=== PATIENT | female | born 1990 | race Caucasian/White ===

== ENCOUNTER 2022-12-10 10:14 | Outpatient (CLI) | payer OTHER, SELFPAY ==
[2022-12-10 11:51] LABS: Albumin* 4.4 g/dL (3.3-5.0); Chloride* 105 mmol/L (96-114); HCG Qualitative Serum* Negative (Negative)
[2022-12-10 11:52] LABS: Potassium* 4.4 mmol/L (3.6-5.1); Sodium* 140 mmol/L (135-149)
[2022-12-10 11:54] LABS: Alkaline Phosphatase* 56 U/L (40-150); Aspartate Amino Transferase* 24 U/L (12-35); Bilirubin Total* 0.7 mg/dL (0.1-1.5); Blood Urea Nitrogen* 17 mg/dL (5-24); Carbon Dioxide* 27 mmol/L (20-32); Cholesterol* 151 mg/dL (90-199); Creatinine* 0.6 mg/dL (0.5-1.5); Estimated Glomerular Filt Rate 121 ml/min; Glucose* 96 mg/dL (60-115); Total Protein* 7.3 g/dL (6.0-8.3)
[2022-12-10 11:55] LABS: Alanine Aminotransferase* 19 U/L (4-35); Calcium* 8.8 mg/dL (8.4-10.6); HDL Cholesterol* 50 mg/dL (>=50); LDL Cholesterol Calculated 87 mg/dL (<100); Triglycerides* 70 mg/dL (40-149)
[2022-12-10 12:09] LABS: Vitamin D 25 Hydroxy* 34 ng/mL (30-80)
[2022-12-10 12:23] LABS: TSH With Reflex to FT4* 0.713 uIU/mL (0.270-4.200)
== END 2022-12-10 10:15 | disposition home or self-care (01) ==
PROVIDERS: PCP Family Medicine; Visit Provider Family Medicine
DX: Z01.419 Encounter for gynecological examination (general) (routine) without abnormal findings (principal); E55.9 Vitamin D deficiency, unspecified; F32.A Depression, unspecified; N91.2 Amenorrhea, unspecified; N92.6 Irregular menstruation, unspecified; Z13.6 Encounter for screening for cardiovascular disorders
CPT/HCPCS: 80053; 80061; 82306; 84443; 84703

== ENCOUNTER 2022-12-12 15:01 | Outpatient (CLI) | payer OTHER, SELFPAY | END 2022-12-12 15:02 | disposition home or self-care (01) | PROVIDERS: PCP Family Medicine; Visit Provider Physician Assistant | DX: Z12.4 Encounter for screening for malignant neoplasm of cervix (principal); N92.6 Irregular menstruation, unspecified | CPT/HCPCS: 83001; 84146 ==

== ENCOUNTER 2024-03-04 09:23 | Outpatient (CLI) | payer OTHER, SELFPAY ==
--- OUTSIDE RECORDS SUMMARY | 2024-03-04 09:25 | XMS_ITS | Clinical Summary ---
Author Organization [facility] Address [place], [place] [address] Care Team Providers Care Pet Care Associate Name Role Phone Glendy Helm MD Primary Care Provider + Allergies No known active allergies Medications Medication Sig Dispensed Refills Start Date End Date Status medication order composer Herbal Supplement; Cats Claw; 15 gtt T.I.D Active azithromycin (ZITHROMAX) 250 mg tabletIndications:Isrrael allen Take 500 mg (2 tabs) by mouth on day 1, then 250 mg (1 tab) daily for days 2-5. 6 tablet 08/18/2019 Active Active Problems Problem Noted Date Diagnosed Date Previous delivery affecting , antepartum 09/18/2018 Premature cervical dilation in third trimester 1 11/19/2017 Cervical high risk HPV (human papillomavirus) te st positive 12/11/2016 Overview: 12/2016- NIL pap, HPV +. PLAN: repeat Pap in 1 year (due 12/2017). Immunizations Name Administration Dates Next Due AMB Influenza, IIV4 PF (=>6 mos Flulaval,Fluzone Fluarix)(Flu Clinic Only) 08/12/2016 Human Papilloma Virus Vaccine 08/20/2010, 010 Influenza Virus, Unspecified 08/05/2013,08/17/20 09 Influenza, IIV4 08/07/2020, 9,07/07/2018,2016 Tdap 07/23/2013,06/14/2010 Tuberculin (PPD) 07/06/2012 Family History Medical History Relation Name Comments Dementia Maternal Grandfather Cancer Maternal Grandmother leukemi a Relation Name Status Comments Maternal Grandfather Maternal Grandmother Social History Tobacco Use Types Packs/Day Years Used Date Smoking Tobacco: Former Cigarettes 0.5 5 Smokeless Tobacco: Never Tobacco Cessation:Counseling Given: Yes Alcohol Use Standard Drinks/Week Comments Yes 0 (1 standard drink = 0.6 oz pur e alcohol) occasional PHQ-2 Answer Date Recorded PHQ-2 Score 0 08/18/2019 Sex and Gender Information Value Date Recorded Sex Assigned at Not on file Gender Identity Not on file Sexual Orientation Not on file Obstetrics History Para Term AB IAB SAB Ectopic Multiple Livin g Live Births 4 3 3 3 3 Date Outcome GA Total Labor Labor/2nd/3rd Weight Sex Delivery Anes PTL Tri A1 A5 Name Cl in 03/06 Term M Nidia ng 05/28 Term M Nidia ng 08/03 Term M Nidia ng Last Filed Vital Signs Vital Sign Reading Time Taken Comments Blood Pressure 117/78 08/18/2019 9:20 AM BOTTOM HOOP DRIVER Pulse 90 08/18/2019 9:20 AM BOTTOM HOOP DRIVER Temperature 37.6 ??C (99.6 ??F) 08/18/2019 9:20 AM CS T Respiratory Rate 16 09/19/2018 9:10 AM BOTTOM HOOP DRIVER Oxygen Saturation 97% 08/18/2019 9:20 AM BOTTOM HOOP DRIVER Inhaled Oxygen Concentration - - Weight 105.5 kg (232 lb 8 oz) 08/18/2019 9:20 AM BOTTOM HOOP DRIVER Height 174.5 cm (5' 8.7) 08/18/2019 9:20 AM BOTTOM HOOP DRIVER Body Mass Index 34.63 08/18/2019 9:20 AM BOTTOM HOOP DRIVER Plan of Treatment Health Maintenance Due Date Last Done Comments HIV for age 15-65 2003 Hepatitis C screening for age 18-79 2006 BMI (ht and wt on same day) for age 18+ 08/18/2020 08/18/2019, 12/18/2016, 11/30/2016 Depression screening for age 12+ 08/18/2020 08/18/2019, 12/18/2016 COVID-19 vaccine series ( season) 2023 Tetanus booster 07/23/2023 07/23/2013, 06/14/2010 Pap test for age 21-65 12/13/2023 3, 12/12/2022, 10/25/2020, Additional history exists Influenza for age 9-49 06/13/2024 0, 08/06/2019, 07/07/2018, Additional history exists Tdap Completed 07/23/2013, 06/14/2010 Pneumococcal series for age 6-64 Aged Out No longer eligible based on patient's age to complete this topic Procedures Procedure Name Priority Date/Time Associated Diagnosis Comments HPV THIN PREP Routine 12/12/2022 12:00 PM BOTTOM HOOP DRIVER from Last 3 Months or Most Recently Relevant to Health Maintenance Results * HPV HIGH RISK (12/12/2022 12:00 PM BOTTOM HOOP DRIVER) TYPE 16 Negative Negative 12/17/2022 5:40 PM BOTTOM HOOP DRIVER [facility] TYPE 18 Negative Negative 12/17/2022 5:40 PM BOTTOM HOOP DRIVER [facility] OTHER HIGH RISK TYPES Negative Negative 12/17/2022 5:40 PM BOTTOM HOOP DRIVER [facility] Other (Cervical) 12/12/2022 12:00 PM BOTTOM HOOP DRIVER 12/16/2022 7:14 AM BOTTOM HOOP DRIVER Narrative [facility] - 12/17/2022 5:40 PM BOTTOM HOOP DRIVER HPV types 16, 18, 31, 33, 35, 39, 45, 51, 52, 56, 58, 59, 66 and 68 DNA were undetectable or below the pre-set threshold. Methodology: Rita Dontae 4800 HPV Test January Angella [facility]REJO [facility] [address] [place] [address], [place] from Last 3 Months or Most Recently Relevant to Health Maintenance Advance Directives * Full Code (Latest Code Status on File) Date Activated Date Inactivated Comments 09/18/2018 2:47 PM 09/19/2018 3:02 PM Question Answer Comments Code Status Discussion: Not Discussed Care Teams Pet Care Associate Relationship Specialty Start Date End Date Glendy Helm MD [address] [place] [address] PCP - General Family Practice 08/29/20
[2024-03-04 14:10] LABS: Chlamydia DNA Amplified* NOT DETECTED (No Detected); GC DNA Amplified* NOT DETECTED (No Detected)
== END 2024-03-04 09:24 | disposition home or self-care (01) ==
PROVIDERS: PCP Family Medicine; Visit Provider Registered Nurse
DX: N92.6 Irregular menstruation, unspecified (principal); R10.2 Pelvic and perineal pain; Z11.3 Encounter for screening for infections with a predominantly sexual mode of transmission
CPT/HCPCS: 84443; 87491; 87591

== ENCOUNTER 2024-05-03 11:15 | Outpatient (CLI) | payer OTHER, SELFPAY ==
--- NOTE | 2024-05-03 11:15 | CRLHL7_ITS ---
For Patients: As a result of the Century Cures Act, medical imaging exams and procedure reports are released immediately into your electronic medical record. You may view this report before your referring provider. If you have questions, please contact your health care provider. INDICATION: irregular menstruation COMPARISON: none TECHNIQUE: 2D sharma scale and color Doppler images were acquired of the pelvis using a transabdominal and transvaginal approach. FINDINGS: Bicornuate uterus is present. Right-side of the uterus measures 7.8 x 4.2 cm and the left side of the uterus measures 8.3 x 3.2 cm. Right endometrium measures 5 millimeters and left endometrium measures 4 millimeters. No uterine fibroid. The right ovary measures 3.2 x 1.8 x 2.4 cm in size and the left ovary measures 3.6 x 2.4 x 2.5 cm. The ovaries demonstrate normal arterial and venous blood flow on color Doppler analysis. There are no suspicious fluid collections within the cul-de-sac. IMPRESSION: Bicornuate uterus. Endometrium measures 5 millimeters and 4 millimeters. No uterine fibroid. Dictated by Elia Oro MD @ 05/03/2024 11:59:36 AM (Electronically Signed)
--- OUTSIDE RECORDS SUMMARY | 2024-05-03 11:29 | XMS_ITS | Clinical Summary ---
Author Organization [facility] Address [place] [address] Care Team Providers Care Specialty Food Products Supervisor Name Role Phone Glendy Helm MD Primary [...] 3 3 Date Outcome GA Total Labor Labor//3rd Weight Sex Type Anes PTL Tri A1 A5 Name Clin 2007 Term M C-Sec tion Living 2008 Term M C-Sec tion Living 2012 Term M C-Sec tion Living Last Filed Vital Signs Vital Sign Reading Time Taken Comments Blood Pressure 117/78 08/18/2019 9:20 AM DOG OR HORSE RACING OFFICIAL Pulse 90 08/18/2019 9:20 AM DOG OR HORSE RACING OFFICIAL Temperature 37.6 ??C (99.6 ??F) 08/18/2019 9:20 AM CS T Respiratory Rate 16 09/19/2018 9:10 AM DOG OR HORSE RACING OFFICIAL Oxygen Saturation 97% 08/18/2019 9:20 AM DOG OR HORSE RACING OFFICIAL Inhaled Oxygen Concentration - - Weight 105.5 kg (232 lb 8 oz) 08/18/2019 9:20 AM DOG OR HORSE RACING OFFICIAL Height 174.5 cm (5' 8.7) 08/18/2019 9:20 AM DOG OR HORSE RACING OFFICIAL Body Mass Index 34.63 08/18/2019 9:20 AM DOG OR HORSE RACING OFFICIAL Plan of Treatment Health Maintenance Due Date Last Done Comments HIV for age 15-65 2003 Hepatitis C screening for age 18-79 2006 BMI (ht and wt on same day) for age 18+ 08/18/2020 08/18/2019, 12/18/2016, 11/30/2016 Depression screening for age 12+ 08/18/2020 08/18/2019, 12/18/2016 COVID-19 vaccine series (2022- season) 2023 Tetanus booster 07/23/2023 07/23/2013, 06/14/2010 [...] HPV THIN PREP Routine 12/12/2022 12:00 PM DOG OR HORSE RACING OFFICIAL from Last 3 Months or Most Recently Relevant to Health Maintenance Results * HPV HIGH RISK (12/12/2022 12:00 PM DOG OR HORSE RACING OFFICIAL) TYPE 16 Negative Negative 12/17/2022 5:40 PM DOG OR HORSE RACING OFFICIAL [facility] TYPE 18 Negative Negative 12/17/2022 5:40 PM DOG OR HORSE RACING OFFICIAL [facility] OTHER HIGH RISK TYPES Negative Negative 12/17/2022 5:40 PM DOG OR HORSE RACING OFFICIAL [facility] Other (Cervical) 12/12/2022 12:00 PM DOG OR HORSE RACING OFFICIAL 12/16/2022 7:14 AM DOG OR HORSE RACING OFFICIAL Narrative [facility] - 12/17/2022 5:40 PM DOG OR HORSE RACING OFFICIAL HPV types 16, 18, 31, 33, 35, 39, 45, 51, 52, 56, 58, 59, 66 and 68 DNA were undetectable or below the pre-set threshold. Methodology: Rita Dontae 4800 HPV Test January Angella [facility] [address] [place] [address], [place] from Last 3 Months or Most Recently Relevant to Health Maintenance Advance Directives * Full Code (Latest Code Status on File) Date Activated Date Inactivated Comments 09/18/2018 2:47 PM 09/19/2018 3:02 PM Question Answer Comments Code Status Discussion: Not Discussed Care Teams Specialty Food Products Supervisor Relationship Specialty Start Date End Date Glendy Helm MD [address] [place] [address] PCP - General Family Practice 08/29/20
== END 2024-05-03 11:16 | disposition home or self-care (01) ==
LOC: US 11:16
PROVIDERS: PCP Family Medicine; Visit Provider Registered Nurse
DX: N92.6 Irregular menstruation, unspecified (principal); Q51.3 Bicornate uterus; R93.89 Abnormal findings on diagnostic imaging of other specified body structures
CPT/HCPCS: 76830; 76856

== ENCOUNTER 2024-05-14 14:01 | Outpatient (CLI) | payer OTHER, SELFPAY ==
--- OUTSIDE RECORDS SUMMARY | 2024-05-14 14:05 | XMS_ITS | Clinical Summary ---
Author Organization [employer] [facility] Address [place], [place] [address] Care Team Providers Care Lead Pourer Name Role Phone Glendy Helm MD Primary [...] Comments Blood Pressure 117/78 08/18/2019 9:20 AM INSURANCE CONSULTANT Pulse 90 08/18/2019 9:20 AM INSURANCE CONSULTANT Temperature 37.6 ??C (99.6 ??F) 08/18/2019 9:20 AM CS T Respiratory Rate 16 09/19/2018 9:10 AM INSURANCE CONSULTANT Oxygen Saturation 97% 08/18/2019 9:20 AM INSURANCE CONSULTANT Inhaled Oxygen Concentration - - Weight 105.5 kg (232 lb 8 oz) 08/18/2019 9:20 AM INSURANCE CONSULTANT Height 174.5 cm (5' 8.7) 08/18/2019 9:20 AM INSURANCE CONSULTANT Body Mass Index 34.63 08/18/2019 9:20 AM INSURANCE CONSULTANT Plan of Treatment Health Maintenance Due Date [...] HPV THIN PREP Routine 12/12/2022 12:00 PM INSURANCE CONSULTANT from Last 3 Months or Most Recently Relevant to Health Maintenance Results * HPV HIGH RISK (12/12/2022 12:00 PM INSURANCE CONSULTANT) TYPE 16 Negative Negative 12/17/2022 5:40 PM INSURANCE CONSULTANT [facility] TYPE 18 Negative Negative 12/17/2022 5:40 PM INSURANCE CONSULTANT [facility] OTHER HIGH RISK TYPES Negative Negative 12/17/2022 5:40 PM INSURANCE CONSULTANT [facility] Other (Cervical) 12/12/2022 12:00 PM INSURANCE CONSULTANT 12/16/2022 7:14 AM INSURANCE CONSULTANT Narrative [facility] - 12/17/2022 5:40 PM INSURANCE CONSULTANT HPV types 16, 18, 31, 33, 35, 39, 45, 51, 52, 56, 58, 59, 66 and 68 DNA were undetectable or below the pre-set threshold. Methodology: Rita Dontae 4800 HPV Test January Angella [facility] [address] [place] [address], [place] from Last 3 Months or Most Recently Relevant to Health Maintenance Advance Directives * Full Code (Latest Code Status on File) Date Activated Date Inactivated Comments 09/18/2018 2:47 PM 09/19/2018 3:02 PM Question Answer Comments Code Status Discussion: Not Discussed Care Teams Lead Pourer Relationship Specialty Start Date End Date Glendy Helm MD [address] [place] [address] PCP - General Family Practice 08/29/20
== END 2024-05-14 14:02 | disposition home or self-care (01) ==
PROVIDERS: PCP Family Medicine; Visit Provider Family Medicine
DX: R10.9 Unspecified abdominal pain (principal); K52.9 Noninfective gastroenteritis and colitis, unspecified
CPT/HCPCS: 80053; 86140; 86231; 86258; 86364

== ENCOUNTER 2025-03-30 10:00 | Outpatient (RCR) | payer OTHER, SELFPAY | END 2025-03-30 10:44 | disposition home or self-care (01) | PROVIDERS: PCP Family Medicine; Visit Provider Orthopaedic Surgery | DX: M75.52 Bursitis of left shoulder (principal); M25.512 Pain in left shoulder; Z51.89 Encounter for other specified aftercare | CPT/HCPCS: 97110; 97161 ==